=== PATIENT | female | born 1990 | race Caucasian/White ===

== ENCOUNTER 2023-01-04 09:19 | Emergency (ER) | payer MEDICAID ==
[~2023-01-04] VITALS: Ht 170.2 cm; Wt 90.8 kg
[2023-01-04 11:31] LABS: BASOPHILS # (AUTO) 0.1 X10'3 (0-0.2); BASOPHILS % (AUTO) 0.7 % (0-1); EOSINOPHILS # (AUTO) 0.2 X10'3 (0-0.9); EOSINOPHILS % (AUTO) 1.3 % (0-6); HEMATOCRIT 39.4 % (35.0-45.0); HEMOGLOBIN 13.4 g/dl (12.0-16.0); LYMPHOCYTES # (AUTO) 2.7 X10'3 (1.1-4.8); LYMPHOCYTES % (AUTO) 18.5 % (21-51); MEAN CORPUSCULAR HEMOGLOBIN 29.7 PG (27.0-31.0); MEAN CORPUSCULAR HGB CONC 33.9 g/dL (33.0-36.5); MEAN CORPUSCULAR VOLUME 87.5 FL (78-98); MEAN PLATELET VOLUME 8.3 FL (7.4-10.4); MONOCYTES # (AUTO) 1.2 X10'3 (0-0.9); MONOCYTES % (AUTO) 8.1 % (2-12); NEUTROPHILS # (AUTO) 10.4 X10'3 (1.8-7.7); NEUTROPHILS % (AUTO) 71.4 % (42-75); PLATELET COUNT 296 X10'3 (140-440); RED BLOOD COUNT 4.51 X10'6 (4.20-5.60); RED CELL DISTRIBUTION WIDTH 12.7 % (11.5-14.5); WHITE BLOOD COUNT 14.6 X10'3 (4.5-11.0)
[2023-01-04 11:40] LABS: BILIRUBIN,URINE NEGATIVE (Neg); CLARITY,URINE SLIGHTLY CLOUDY (Clear); COLOR,URINE YELLOW (Yellow); GLUCOSE, URINE NEGATIVE (Neg); KETONES,URINE NEGATIVE (Neg); LEUKOCYTE ESTERASE ,URINE SMALL (Neg); NITRITES, URINE NEGATIVE (Neg); OCCULT BLOOD,URINE NEGATIVE (Neg); PH,URINE 5.5 (4.8-8.0); PROTEIN,URINE NEGATIVE (Neg); UROBILINOGEN,URINE 0.2 E.U/dL (0.2-1.0)
[2023-01-04 11:41] LABS: URINE HCG NEGATIVE (NEG)
[2023-01-04] MEDS ORDERED: iohexol 300mg/ml 100ml inj. ONE (11:44)
[2023-01-04 11:45] LABS: UA COLLECTION TYPE VOIDED
[2023-01-04 11:45] LABS: ALANINE AMINOTRANSFERASE 17 U/L (12-78); ALBUMIN 3.1 G/DL (3.4-5.0); ALBUMIN/GLOBULIN RATIO 0.7 (1.1-1.5); ALKALINE PHOSPHATASE 107 IU/L (46-116); AMYLASE 42 U/L (25-115); ANION GAP 9 (8-16); ASPARTATE AMINO TRANSFERASE 14 U/L (10-37); BILIRUBIN,TOTAL 0.2 MG/DL (0.1-1.0); BLOOD UREA NITROGEN 8 MG/DL (7-18); BUN/CREATININE RATIO 11.9 (10.0-20.0); CALCIUM 8.7 MG/DL (8.5-10.1); CHLORIDE 100 MMOL/L (99-107); CREATININE 0.67 MG/DL (0.40-0.90); GLUCOSE 141 MG/DL (70-104); LIPASE 29 U/L (16-77); POTASSIUM 4.2 MMOL/L (3.5-5.1); SODIUM 136 MMOL/L (135-145); TOTAL CARBON DIOXIDE 27.2 MMOL/L (24-32); TOTAL PROTEIN 7.8 G/DL (6.4-8.2); eCRCL 115 ML/MIN; eGFR > 90 ML/MIN
[2023-01-04] MEDS ORDERED: normal saline 1000ML IV soln IVB ONE (11:45)
[2023-01-04] MEDS ORDERED: morphine 4 MG/ML inj SYRINge IV ONE ×3 (11:45→17:05)
[2023-01-04] MEDS ORDERED: ondansetron/PF 4mg/2ml inj IV ONE (11:45)
[2023-01-04 11:46] LABS: SQUAMOUS EPITHELIAL CELL,UR MANY /LPF (FEW)
[2023-01-04 11:47] LABS: MUCUS STRANDS MANY /LPF (Neg); WBC,URINE 30-50 /HPF (0-4)
[2023-01-04 11:48] LABS: BACTERIA,URINE FEW /HPF (Neg); RBC,URINE 0-2 /HPF (0-2); WBC CLUMPS,URINE FEW /HPF (NEGATIVE)
[2023-01-04] MEDS ORDERED: nicotine 14mg patch - 24hr TD ONE (16:55)
[2023-01-04] MEDS ORDERED: ondansetron/PF 4mg/2ml inj IM ONE (17:05)
[2023-01-04 20:06] VITALS: BP 132/81; PULSE 80; RESP 20; TEMP 98.3; O2SAT 100
[2023-01-04] MEDS ORDERED: HYDROmorphone 1 mg/ml syringe IV ONE (20:45)
== END 2023-01-04 21:52 | disposition left against medical advice (07) ==
LOC: ER 09:20
DX: N83.512 Torsion of left ovary and ovarian pedicle (principal); R10.31 Right lower quadrant pain
CPT/HCPCS: 36415; 71045; 74177; 76700; 76830; 76856; 80053; 81001; 81025; 82150; 83690; 85025; 85651; 86140; 87210; 87491; 87591; 93976; 96361; 96372; 96374; 96375; 96376; 99285; J1170; J2270; J2405; J3490; J7030; Q0112; Q9967